=== PATIENT | male | born 1995 | race African-American/Black ===

== ENCOUNTER → 2023-01-04 | Outpatient (CLI) | payer OTHER ==
[2023-01-04 09:34] LABS: EOS # 0.2 10^3/uL (0.0-0.5)
== END ==
LOC: M LAB 08:48
PROVIDERS: ATTEND Internal Medicine Pulmonary Disease
DX: J45.30 Mild persistent asthma, uncomplicated (principal)
CPT/HCPCS: 36415; 82785; 85048; 86003; 94010; G0463

== ENCOUNTER 2024-05-22 18:05 | Inpatient (IN) | payer OTHER ==
[~2024-05-22] VITALS: Ht 180.3 cm; Wt 88.9 kg
[~2024-05-22 18:05] MED LIST: ACET1TAB55 PO; ALBU8.5H; CYCL5TAB PO; [UNRECOGNIZED DRUG - CODE] OU
[2024-05-22] MEDS ORDERED: FLUT1BLS17 INH (18:31)
[2024-05-22] MEDS ORDERED: SERT25TA21 PO (18:31)
[2024-05-22] MEDS ORDERED: MECL-86 PO (20:31)
[2024-05-22] MEDS ORDERED: HOME MED LIST COMPLETE! XX SCH (20:35)
[2024-05-22] MEDS ORDERED: MOM 30ML SUSPENSION UDC PO PRN (22:10)
[2024-05-22] MEDS ORDERED: ACETAMINOPHEN TAB 650MG DOSE (2X325MG) PO PRN (22:10)
[2024-05-22] MEDS ORDERED: MAALOX 30 ML SUSP *UDC PO PRN (22:10)
[2024-05-22] MEDS ORDERED: diphenhydrAMINE 25MG CAP PO PRN (22:10)
[2024-05-22] MEDS ORDERED: traZODone 50 MG TAB PO PRN (22:10)
[2024-05-22] MEDS ORDERED: IBUPROFEN 400MG TAB PO PRN (22:10)
[2024-05-22 23:24] VITALS: BP 124/99; TEMP 97.1; O2SAT 100
[2024-05-23 06:16] VITALS: BP 110/80; TEMP 97.8; O2SAT 99
== END 2024-05-23 12:10 | disposition home or self-care (01) | DRG 882 ==
LOC: M ED 18:05 → M ED INP 22:07 → M PSY 23:24
PROVIDERS: ADMIT Psychiatry & Neurology Psychiatry; ATTEND Psychiatry & Neurology Psychiatry
DX: F43.23 Adjustment disorder with mixed anxiety and depressed mood (principal); Z91.82 Personal history of military deployment; R07.9 Chest pain, unspecified; Z79.899 Other long term (current) drug therapy; Z88.2 Allergy status to sulfonamides; Z88.8 Allergy status to other drugs, medicaments and biological substances